=== PATIENT | female | born 1980 | race Caucasian/White ===

== ENCOUNTER 2019-01-19 08:59 | Emergency (ER) | payer OTHER, MEDICAID ==
[~2019-01-19] VITALS: Ht 154.9 cm; Wt 58.2 kg
[2019-01-19] MEDS ORDERED: BUPR50TA (09:07)
[2019-01-19] MEDS ORDERED: QUET5TAB (09:07)
[2019-01-19] MEDS ORDERED: CITA20TA6 (09:07)
[2019-01-19] MEDS ORDERED: KETOROLAC TROMETHAMINE 10 MG TAB PO ONE (09:45)
--- NOTE | 2019-01-19 10:26 | REP ---
Left knee series: Five views. History: There recorded. Patient unable to fully straighten. Findings: Seven views of the left knee demonstrate overall normal mineralization. No fracture or subluxation is seen. No evidence of joint effusion. Impression: Negative left knee radiographs. Electronically Signed by Rich Velazquez MD 01/19/2019 10:18 A
[2019-01-19] MEDS ORDERED: KETO10TAB PO (10:43)
[2019-01-19 11:11] VITALS: BP 120/77
== END 2019-01-19 11:13 | disposition home or self-care (01) ==
LOC: M ED 08:59
DX: M25.562 Pain in left knee (principal); V18.4XXA Pedal cycle driver injured in noncollision transport accident in traffic accident, initial encounter; Y92.410 Unspecified street and highway as the place of occurrence of the external cause; F41.9 Anxiety disorder, unspecified; F32.9 Major depressive disorder, single episode, unspecified; Z79.899 Other long term (current) drug therapy

== ENCOUNTER → 2020-04-23 | Outpatient (CLI) | payer OTHER, MEDICAID ==
[~2020-04-23] MED LIST: BUPR-69; CITA20TA6; D31000TA2 PO; KETO10TAB PO; LAMO150T3; PREVTAB2; QUET5TAB
== END ==
LOC: M LABSMTC 12:53
PROVIDERS: ATTEND Anesthesiology
DX: Z01.812 Encounter for preprocedural laboratory examination (principal); Z20.828 Contact with and (suspected) exposure to other viral communicable diseases
CPT/HCPCS: C9803; U0003

== ENCOUNTER 2020-04-28 07:13 | Day surgery (SDC) | payer OTHER ==
[~2020-04-28] VITALS: Ht 154.9 cm; Wt 59.0 kg
[~2020-04-28 07:13] MED LIST changes: +LIDOCAINE 2% 100MG/5ML SDV (FOR ANES.) As Ordered ONE; +LR 1,000 ML IV ONE; +MIDAZOLAM INJ 2MG/2ML VIAL (J2250 PER 1MG) As Ordered ONE; +ONDANSETRON 4MG/2ML VIAL As Ordered ONE; +PHENYLephrine HCL 500 MCG/5 ML (100MCG/ML) SYRINGE (J2370) As Ordered ONE; +ROCURONIUM BROMIDE 50 MG/5 ML VIAL As Ordered ONE; +SUGAMMADEX SODIUM 500 MG/5 ML VIAL (BRIDION) As Ordered ONE; +ceFAZolin SOD 2 GM in IV 1 EA IV ONE; +dexameTHASONE 4 MG/ML 1ML VIAL (J1100 PER 1MG) As Ordered ONE; +ePHEDrine SULFATE 25 MG/5 ML(5MG/ML) SYRINGE As Ordered ONE; +fentaNYL 250 MCG/5 ML INJECTION (J3010) As Ordered ONE; +propofoL 200 MG/20 ML VIAL As Ordered ONE
[2020-04-28] MEDS ORDERED: dexameTHASONE 10MG/1ML VIAL PRES.FREE (J1100 PER 1MG) ONE (07:14)
[2020-04-28] MEDS ORDERED: ROPIvacaine 0.5% 30ML INJECTION (J2795 PER 1MG) ONE (07:14)
[2020-04-28] MEDS ORDERED: EPINEPHrine INJ 1 MG/ML 1ML AMP ONE (07:14)
[2020-04-28] MEDS ORDERED: BUPIVACAINE HCL 0.25% 10ML VIAL As Ordered ONE (07:30)
[2020-04-28] MEDS ORDERED: fentaNYL 100 MCG/2 ML INJECTION (J3010) As Ordered ONE (07:34)
[2020-04-28] MEDS ORDERED: MIDAZOLAM INJ 2MG/2ML VIAL (J2250 PER 1MG) As Ordered ONE (07:34)
[2020-04-28] MEDS: MIDAZOLAM INJ 2MG/2ML VIAL (J2250 PER 1MG) IV SCH ×2 (07:45→07:48)
[2020-04-28] MEDS: fentaNYL 100 MCG/2 ML INJECTION (J3010) IV SCH ×2 (07:45→07:48)
[2020-04-28] MEDS ORDERED: ACETAMINOPHEN 1000MG 100ML IV BTL (OFIRMEV) (J0131 PER 10MG) As Ordered ONE (08:11)
[2020-04-28] MEDS ORDERED: oxyCODONE 5MG TAB As Ordered ONE (10:42)
[2020-04-28] MEDS: oxyCODONE 5MG TAB PO PRN ×2 (10:43→11:13)
[2020-04-28] MEDS ORDERED: METOCLOPRAMIDE INJ 10MG/2ML VIAL (J2765 PER 1) IV PRN (11:00)
[2020-04-28] MEDS ORDERED: ONDANSETRON 4MG/2ML VIAL IV PRN (11:00)
[2020-04-28] MEDS ORDERED: LR 1,000 ML IV SCH ×2 (11:00)
[2020-04-28] MEDS ORDERED: fentaNYL 100 MCG/2 ML INJECTION (J3010) IV PRN (11:00)
[2020-04-28] MEDS: MEPERIDINE INJ 25 MG/ML VIAL (J2175) IV PRN ×2 (11:15→11:20)
[2020-04-28 11:30] VITALS: BP 149/86
--- NOTE | 2020-05-07 07:16 | REP ---
RIGHT KNEE: 2-VIEWS HISTORY: Possible meniscal tear. Procedural imaging. FLUROSCOPY TIME: 5 seconds reported. FINDINGS: A sequential of two [id number]-[id number] fluoroscopically obtained spot radiographs of the knee document operative procedure. No laterality markers are visible. MTDD
--- NOTE | 2020-05-07 09:07 | RO ---
DATE OF OPERATION: 04/28/2020 PREOPERATIVE DIAGNOSES: * Right knee recurrent lateral patellar instability. * Right knee chondromalacia. * Right knee possible medial meniscus tear. * Right knee possible loose body. POSTOPERATIVE DIAGNOSES: * Right knee recurrent lateral patellar instability. * Right knee patellar chondromalacia. * Right knee arthrofibrosis. PROCEDURE: * Right knee diagnostic arthroscopy with chondroplasty and synovectomy. * Right knee open medial patellofemoral ligament reconstruction with allograft. SURGEON: Angel Weber MD RAISIN SEPARATOR OPERATOR: FAVIOLA Plunkett ANESTHESIA: General with preoperative nerve block. IV FLUIDS: Lactated Ringer's. ESTIMATED BLOOD LOSS: 10 mL. IMPLANTS: 1. Arthrex 3 mm suture tack in the patella times 2. 2. Arthrex 5.5 mm cork screw in the femur times 1. 3. Semitendinosus allograft closure with nylon. CLOSURE: Nylon. PROCEDURE: The patient was identified in the preoperative holding area. The right knee was marked. She had a perioperative nerve block from anesthesia. She was brought to the operating room and placed supine on a well-padded OR table. General anesthesia was induced. She had an SCD on the left lower extremity for deep vein thrombosis (DVT) prophylaxis. A well-padded tourniquet was applied to the right thigh. Examination under anesthesia revealed 120 degrees of forward flexion and then flexion up to 135 degrees with a small audible pop most likely some scar tissue being broken up. She had full extension stable to varus and valgus stretch, grade 1A Judith. She had three quadrants of lateral patellar mobility to poor end point. The right leg was then prepped and draped in normal sterile fashion with ChloraPrep from the toes up to the tourniquet. Prior to incision, timeout was performed per hospital protocol. Tomasa Hendricks was present for the entire procedure and participated in all essential portions of the procedure. This included patient positioning and draping, preparing the graft on the back table, holding the retractors, assisting with anchor placement and stabilizing the patella and assisted with securing the graft and graft passage. She also assisted with the wound closure, applied the dressing and brace. Patient had received appropriate IV antibiotics within one hour of incision. The right leg was exsanguinated with an Esmarch bandage. The tourniquet inflated to 275 mmHg. The knee was insufflated with lactated Ringer's and then a standard anterolateral portal made with an 11 blade. A 30-degree arthroscope was introduced into the joint. Diagnostic arthroscopy revealed diffuse moderate synovitis and scar tissue in the suprapatellar pouch and some mild chondromalacia of the patella. No loose bodies were seen. I carefully inspected the suprapatellar pouch, gutters and medial and lateral compartments and the intercondylar notch; no loose bodies seen. Medial portal was then established under direct visualization and on probing the medial meniscus including the root, posterior horn and body, there were no tears. The suction was turned on and there was no displacement of the meniscus into the central part of the joint. There is no chondromalacia in the medial compartment. There is some synovitis in the anterior compartment that was debrided with the shaver. The ACL was intact and unremarkable. The leg was brought to the figure-four position and the lateral meniscus was intact and no significant chondromalacia there. The lateral femoral condyle was carefully inspected further anteriorly; no significant chondromalacia. With the knee in full extension, the shaver was used to perform a synovectomy. On probing of the central aspect of the patella, there was grade 2 chondromalacia with a mildly unstable flap, so a chondroplasty was performed with the shaver to remove unstable flaps. No indication for cartilage repair. The knee was irrigated and drained. With the knee on a radiolucent triangle, I made a longitudinal incision with a 15 blade along the medial border of the patella. Dissection down to the superficial retinaculum with Metzenbaum scissors. Fresh 15 blade used to sharply incise through layers one and two of the retinaculum down onto bone. A subperiosteal flap was raised anteriorly on the patella, dissection along the medial patellar facet without violating the capsule. A trough was then created in the medial border of the patella with a rongeur. Next, Metzenbaum scissors were used to dissect between layers two and three posteromedially towards the medial epicondyle. That plane was developed with the scissors to allow for graft passage. I then marked out at the equator and a centimeter proximal and then drilled in place a total of two Arthrex 3 mm double-loaded suture tacks. These both had excellent fixation. I then made a separate incision between the medial epicondyle and adductor tubercle with a 15 blade. Dissection through subcutaneous fat with Metzenbaum scissors. The sulcus between the medial epicondyle and adductor tubercle was palpated. Deep fascia was carefully opened with cautery. Using bony landmarks, I then advanced a K-wire on power. AP and lateral views with the large C-arm were used to confirm appropriate placement. A second guidewire was used to get a better position. This was nice and posterior but I had to go slightly distal from the initial K-wire. Once the appropriate position was confirmed on the large C-arm with AP and lateral views and via palpation, soft tissue was cleared out at the aperture. The K-wire was removed and then a punch for an Arthrex 5.5 mm cork screw was used to create a socket. I then placed a 5.5 mm Peak corkscrew anchor which had excellent fixation. A semitendinosus allograft had been brought on the back table and my religious assistant had placed a running locking whip stitch in each end. A curved free needle from Arthrex was then used to secure the mid portion of the graft to the medial border of the patella with the sutures from the suture tacks. So, one suture was passed four times in a locking fashion and then the free end was used to reduce the graft to the medial border of the patella. This was done for all four sutures. Sutures were then tied by hand. This nicely secured the mid portion of the allograft to the patella. Extra suture was cut and discarded. Using a Vicryl-passing suture, the tails of the allograft were passed between layers two and three and exited at the far medial incision. Each allograft limb was then secured to the corkscrew anchor by using the curve-free needle. Four locking passes through each allograft tail and then the corresponding free limb used to reduce the graft to the medial femoral condyle. I then assessed lateral patellar translation within the 0, 10, 20, 30 and 40 degrees of flexion and this was found to nicely restore lateral patellar translation. The appropriate sutures were then tied by hand with the knee on the radiolucent triangle and 40 degrees of flexion. I then reassessed lateral patellar translation and was quite pleased. Excess graft and suture was cut and discarded. I then irrigated all incisions. The medial retinaculum was then closed with 0 Vicryl suture in a [id number] fashion. I then did a final check of lateral patellar translation with the knee at 0, 10, 20, 30 and 40 degrees of flexion and there were 1-1/2 quadrants of lateral patellar mobility with a firm end point. I was easily able to flex the knee to 120 degrees without any change in lateral patellar translation. Subcuticular closure with 2-0 Vicryl followed by a running nylon. The patient was then placed into a hinging brace locked in extension. Tourniquet was let down with excellent reperfusion. All counts correct x2. Complications none. DISPOSITION: Patient is 50% weight bearing with the hinged knee brace locked in extension. She will start physical therapy within the next week. She will have full-dose aspirin for a month for DVT prophylaxis. JONASD
== END 2020-04-28 12:35 | disposition home or self-care (01) ==
LOC: M SDC 07:13
PROVIDERS: ATTEND Orthopaedic Surgery
DX: M25.361 Other instability, right knee (principal); M94.261 Chondromalacia, right knee; F41.9 Anxiety disorder, unspecified; F32.9 Major depressive disorder, single episode, unspecified; G43.909 Migraine, unspecified, not intractable, without status migrainosus; Z79.899 Other long term (current) drug therapy
CPT/HCPCS: 27427; 29879; 64447; 76000; 81025; C1713; C1762; J0131; J0171; J1100; J2175; J2250; J2370; J2405; J2795; J3010

== ENCOUNTER → 2020-07-07 | Outpatient (CLI) | payer OTHER ==
[~2020-07-07] MED LIST changes: -LIDOCAINE 2% 100MG/5ML SDV (FOR ANES.) As Ordered ONE; -LR 1,000 ML IV ONE; -MIDAZOLAM INJ 2MG/2ML VIAL (J2250 PER 1MG) As Ordered ONE; -ONDANSETRON 4MG/2ML VIAL As Ordered ONE; -PHENYLephrine HCL 500 MCG/5 ML (100MCG/ML) SYRINGE (J2370) As Ordered ONE; -ROCURONIUM BROMIDE 50 MG/5 ML VIAL As Ordered ONE; -SUGAMMADEX SODIUM 500 MG/5 ML VIAL (BRIDION) As Ordered ONE; -ceFAZolin SOD 2 GM in IV 1 EA IV ONE; -dexameTHASONE 4 MG/ML 1ML VIAL (J1100 PER 1MG) As Ordered ONE; -ePHEDrine SULFATE 25 MG/5 ML(5MG/ML) SYRINGE As Ordered ONE; -fentaNYL 250 MCG/5 ML INJECTION (J3010) As Ordered ONE; -propofoL 200 MG/20 ML VIAL As Ordered ONE
--- NOTE | 2020-07-07 17:20 | REP ---
INDICATION: CALCIFIC TENDONITIS. COMPARISON: None. TECHNIQUE: Axial, oblique coronal and oblique sagittal imaging planes utilized. T1 and T2 weighted scans are obtained in the usual fashion with and without fat saturation. FINDINGS: Cortical and medullary bone signal intensity are normal. Glenohumeral and acromioclavicular joints are normally aligned. No joint effusion or bursal effusion is appreciated. There is evidence of a nondisplaced anterior cartilaginous labral tear. Superior labrum and posterior labrum appear to be intact. The infraspinatus, subscapularis, and biceps tendons appear intact. There is no evidence of supraspinatus tendon tear. No significant bony spurring is seen. No juxta-articular cyst or mass is seen. IMPRESSION: Findings suggestive of nondisplaced tear of the anterior cartilaginous labrum. Otherwise negative. <Electronically signed by Joseph Velazquez > 07/07/20 [id number]
== END ==
LOC: M RAD 14:56
PROVIDERS: ATTEND Physician Assistant
DX: M75.32 Calcific tendinitis of left shoulder (principal)

== ENCOUNTER → 2021-07-03 | Outpatient (CLI) | payer OTHER ==
[~2021-07-03] MED LIST changes: +QUET50TA4; -QUET5TAB
--- NOTE | 2021-07-03 09:24 | REP ---
INDICATION: CALCIFIC TENDINITIS OF RT SHOULDER. COMPARISON: None. TECHNIQUE: Coronal oblique T1 and fat suppressed T2. Sagittal oblique fat suppressed T2. Axial cfnec-yfzcchoy-nulg and T2 FLASH. FINDINGS: There is mild hypertrophic degenerative change seen involving the acromioclavicular joint. The acromion process is type 2/3. There is patchy and linear T2 hyper signal seen throughout the supraspinatus tendon without evidence of musculotendinous retraction or significant muscular atrophy. Normal appearing low signal is seen throughout the subscapularis, infraspinatus, and teres minor tendons. The biceps tendon resides within the bicipital groove. The coracohumeral and coracoacromial ligaments appear mildly thickened. There is no glenohumeral joint effusion. There is a small amount of fluid in the subcoracoid recess. The marrow signal is within normal limits. IMPRESSION: 1. There is supraspinatus tendinitis/tendinosis. 2. 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 This needs to be correlated clinically. 3. Other findings as described above. <Electronically signed by Amanuel Atkins > 07/03/21 [id number]
== END ==
LOC: M RAD 07:02
PROVIDERS: ATTEND Physician Assistant
DX: M75.31 Calcific tendinitis of right shoulder (principal)

== ENCOUNTER → 2021-10-30 | Outpatient (CLI) | payer OTHER ==
[~2021-10-30] MED LIST changes: -D31000TA2 PO; +VITA100093 PO
[2021-10-30 13:04] LABS: BASO % 0.1 % (0.0-1.0); EOS # 0.1 10^3/uL (0.0-0.5); EOS % 1.5 % (0.0-3.0); HEMATOCRIT 40.7 % (36.0-47.0); HEMOGLOBIN 13.7 g/dl (12.0-15.5); LYMPH # 1.6 10^3/uL (1.5-5.0); LYMPH % 17.2 % (24.0-44.0); MEAN CORPUSCULAR HEMOGLOBIN 29.7 pg (27.0-33.0); MEAN CORPUSCULAR HGB CONC 33.7 g/dl (32.0-36.5); MEAN CORPUSCULAR VOLUME 88.3 fl (80.0-96.0); MONO # 0.5 10^3/uL (0.0-0.8); MONO % 5.1 % (2.0-8.0); NEUTROPHILS % 75.8 % (36.0-66.0); PLATELET COUNT, AUTOMATED 328 10^3/uL (150-450); RED BLOOD COUNT 4.61 10^6/uL (4.00-5.40); WHITE BLOOD COUNT 9.2 10^3/uL (4.0-10.0)
[2021-10-30 13:29] LABS: ALBUMIN 3.5 GM/DL (3.2-5.2); ALT/SGPT 29 U/L (12-78); BILIRUBIN,TOTAL 0.3 MG/DL (0.2-1.0); BLOOD UREA NITROGEN 14 MG/DL (7-18); C REACTIVE PROTEIN QUANTITATIV 1.34 MG/DL (0.00-0.30); CALCIUM LEVEL 8.8 MG/DL (8.5-10.1); CARBON DIOXIDE LEVEL 27 MEQ/L (21-32); CHLORIDE LEVEL 108 MEQ/L (98-107); CREATININE FOR GFR 0.68 MG/DL (0.55-1.30); GLOMERULAR FILTRATION RATE > 60.0 (>60); GLUCOSE, FASTING 81 MG/DL (70-100); POTASSIUM SERUM 4.3 MEQ/L (3.5-5.1); RHEUMATOID FACTOR QUANT < 10.0 IU/ML (<15.0); SODIUM LEVEL 140 MEQ/L (136-145)
[2021-10-30 14:13] LABS: ERYTHROCYTE SEDIMENTATION RATE 17 mm/hr (0-20)
== END ==
LOC: M RAD 11:03
PROVIDERS: ATTEND Internal Medicine Rheumatology
DX: M25.50 Pain in unspecified joint (principal); R68.2 Dry mouth, unspecified

== ENCOUNTER → 2022-01-07 | Outpatient (REF) | payer OTHER | LOC: M SFHCRHEU 10:39 | PROVIDERS: ATTEND Internal Medicine Rheumatology | DX: M25.50 Pain in unspecified joint (principal); R68.2 Dry mouth, unspecified; R79.82 Elevated C-reactive protein (CRP) ==

== ENCOUNTER → 2023-04-11 | Outpatient (REF) | payer OTHER ==
[2023-04-11 13:39] LABS: APPEARANCE, URINE HAZY (CLEAR); BACTERIA, URINE AUTO NEGATIVE (NEGATIVE); BILIRUBIN, URINE AUTO NEGATIVE (NEGATIVE); BLOOD, URINE BLOOD NEGATIVE (NEGATIVE); COLOR, URINE YELLOW (YELLOW); GLUCOSE, URINE (UA) AUTO NEGATIVE (NEGATIVE); KETONE, URINE AUTO NEGATIVE (NEGATIVE); LEUKOCYTE ESTERASE, URINE AUTO 3+ (NEGATIVE); NITRITE, URINE AUTO NEGATIVE (NEGATIVE); PROTEIN, URINE AUTO NEGATIVE (NEGATIVE); RBC, URINE AUTO 0 /HPF (0-3); SPECIFIC GRAVITY URINE AUTO 1.006 (1.002-1.035); SQUAMOUS EPITHELIAL CELL UR AU 7 /HPF (0-6); UROBILINOGEN, URINE AUTO 0.2 mg/dL (0.0-2.0); WBC, URINE AUTO 7 /HPF (0-3)
== END ==
LOC: M SMT 13:10
PROVIDERS: ATTEND Physician Assistant
DX: R31.21 Asymptomatic microscopic hematuria (principal)

== ENCOUNTER → 2024-04-12 | Outpatient (REF) | payer OTHER ==
[2024-04-12 10:46] LABS: APPEARANCE, URINE CLEAR (CLEAR); BACTERIA, URINE AUTO NEGATIVE (NEGATIVE); BILIRUBIN, URINE AUTO NEGATIVE (NEGATIVE); BLOOD, URINE BLOOD NEGATIVE (NEGATIVE); COLOR, URINE YELLOW (YELLOW); GLUCOSE, URINE (UA) AUTO NEGATIVE (NEGATIVE); KETONE, URINE AUTO NEGATIVE (NEGATIVE); LEUKOCYTE ESTERASE, URINE AUTO TRACE (NEGATIVE); NITRITE, URINE AUTO NEGATIVE (NEGATIVE); PROTEIN, URINE AUTO NEGATIVE (NEGATIVE); RBC, URINE AUTO 0 /HPF (0-3); SPECIFIC GRAVITY URINE AUTO 1.008 (1.002-1.035); SQUAMOUS EPITHELIAL CELL UR AU 2 /HPF (0-6); UROBILINOGEN, URINE AUTO 0.2 mg/dL (0.0-2.0); WBC, URINE AUTO 0 /HPF (0-3)
== END ==
LOC: M SMT 09:58
PROVIDERS: ATTEND Physician Assistant
DX: R31.21 Asymptomatic microscopic hematuria (principal)